=== PATIENT | female | born 1990 | race Two or more races ===

== ENCOUNTER 2025-04-12 11:03 | Emergency (ER) | payer BC ==
[~2025-04-12] VITALS: Ht 167.6 cm; Wt 64.9 kg
[2025-04-12] MEDS ORDERED: NEO-POLYMYXIN-H10 M1 (11:26)
[2025-04-12] MEDS ORDERED: CEFTRIAXONE SODIUM 1,000 MG VIAL IM STA (12:05)
[2025-04-12] MEDS ORDERED: AMOX-CLAV 875-1 EACH PO (12:17)
[2025-04-12] MEDS ORDERED: CEFTRIAXONE SODIUM 1,000 MG VIAL ONE (14:07)
== END 2025-04-12 14:54 | disposition home or self-care (01) ==
LOC: ER 11:04
DX: H66.91 Otitis media, unspecified, right ear (principal)